=== PATIENT | female | born 1970 | race Caucasian/White ===

== ENCOUNTER 2019-04-30 09:09 | Day surgery (SDC) | payer OTHER ==
[~2019-04-30] VITALS: Ht 162.6 cm; Wt 93.0 kg
--- NOTE | ~2019-04-30 | OP ---
PATIENT NAME: MANUEL SWEENEY MEDICAL RECORD: [id number] :74 LOCATION:[facility] ADMISSION DATE: SURGEON: MIREYA CLARKE DATE OF OPERATION: 04/30/2019 SURGEON: Mireya Clarke DPM PREOPERATIVE DIAGNOSIS: Hallux abductovalgus, right foot. POSTOPERATIVE DIAGNOSIS: Hallux abductovalgus, right foot. PROCEDURE: Avelino bunionectomy, right foot. ANESTHESIA: Local with monitored anesthesia care. HEMOSTASIS: Pneumatic ankle tourniquet inflated to 250 mmHg. ESTIMATED BLOOD LOSS: Minimal. MATERIALS: One 2.5 mm [employer] screw. INJECTABLES: 20 cc of 0.5% bupivacaine plain. The patient has longstanding history of pain associated with a right bunion deformity. We have reviewed the proposed procedure, risks and benefits were discussed. Complications were reviewed. All questions were answered. She was appropriately consented for the above-mentioned procedure. DESCRIPTION OF PROCEDURE: The patient was brought into the operating room and placed on the operating table in supine position. A timeout was called with Dr. Clarke, who identified the patient, the surgical site, and the surgery to be performed. Once appropriate anesthesia was obtained, the foot was prepped and draped in the usual aseptic manner. The pneumatic ankle tourniquet was inflated to 250 mmHg on the well-padded right ankle. Attention was directed to the dorsal aspect of the first metatarsophalangeal joint where a 6 cm linear curvilinear incision was made just medial to the extensor hallucis longus tendon. This incision was carried deep to soft tissue with care being taken to retract all vital neurovascular structures. All bleeders were cauterized along the way. The periosteum was then reflected from the first metatarsophalangeal joint, thus exposing the joint and the hypertrophied medial eminence of the first metatarsal head. Utilizing a sagittal saw, the hypertrophied medial eminence was resected. Next, utilizing a sagittal saw, a V-shaped osteotomy was created in the head of the first metatarsal. This was a through and mggyulv-gnr-glmktfu osteotomy with the apex oriented distally. The capital fragment was translocated laterally and impacted upon the first metatarsal shaft. Next, utilizing the manufacture's recommended technique, one 2.5-mm screw was placed across the osteotomy. Excellent fixation was noted after placement of the screw. All remaining over hanging bone from the medial aspect of the first metatarsal shaft was removed with the bone saw. The surgical site was then irrigated with copious amounts of normal sterile saline via bulb syringe. OPERATIVE REPORT [id number] ZAHRAMANUEL PAGAN The periosteum was reapproximated and coapted using 3-0 Vicryl. The subQ was reapproximated and coapted with 4-0 Vicryl and the skin was reapproximated and closed with 4-0 nylon. A dressing consisting of Xeroform, 4 x 4's, Kerlix and Coban was applied to the right foot. The pneumatic ankle tourniquet was deflated and cap refill time was immediate to all digits of the right foot. The patient was discharged home with instructions to ice and elevate the right foot. She was dispensed a boot to help offload the foot. She has my cell phone number for any afterhours difficulties. She was provided with a prescription for Demerol 50 mg, Phenergan 25 mg, and ibuprofen 800 mg. There were no complications with this procedure and we will follow up with her next week. 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
[~2019-04-30 09:09] MED LIST: CYCLOBENZAPRINE10 MG PO; HYDROCODON-ACE1 EA10 PO; OMEPRAZOLE20 M1 PO; ULTRAM50 MG PO; VITAMIN D31000 UNI2 PO; VOLTAREN75 MG
[2019-04-30 09:30] LABS: HEMATOCRIT 40.6 % (36.0-48.0); HEMOGLOBIN 14.3 g/dL (12-16); MCH 31.9 pg (26.0-34.0); MCHC 35.2 g/dL (31.0-37.0); MCV 90.6 fL (80.0-100.0); MEAN PLATELET VOLUME 9.7 fL (7.4-10.4); RBC 4.48 10x6/uL (4.00-5.40); WBC 4.6 10x3/uL (4.8-10.8)
[2019-04-30 10:18] VITALS: BP 141/93; Ht 162.6 cm; Wt 93.0 kg
== END 2019-04-30 15:00 | disposition home or self-care (01) ==
LOC: D.OPS 09:09 → D.PAN 11:45 → D.OPS 12:00
PROVIDERS: Anesthesiology; ATTEND Podiatrist
DX: M20.11 Hallux valgus (acquired), right foot (principal); Z01.812 Encounter for preprocedural laboratory examination